=== PATIENT | female | born 1960 | race African-American/Black ===

== ENCOUNTER 2024-01-25 15:42 | Outpatient (AMB) | payer MEDICAID, SELFPAY ==
--- NOTE | 2024-01-25 15:44 | AM.OFFWIN_ITS ---
Intake Vital Signs 01/25/24 15:54 Height 5 ft 9 in Weight 220 lb BMI 32.5 BP 130/82 Blood Pressure Location Rt brachial Position Sitting Pulse 86 Pulse Source Pulse Oximeter Pulse Oximetry (%) 99 Oxygen Delivery Method Room Air Intake Visit Reasons: STUDENT OUTREACH COORDINATOR Medication Refill Ok per Dr. Pena Patient Tobacco Use Status: Former Tobacco user Allergies No Known Allergies Allergy (Verified 01/25/24 15:57) HPI STUDENT OUTREACH COORDINATOR Medication Refill Ok per Dr. Pena HPI Details 63 yr old female presented to the office for a sick visit. Patient has moved from [place] and not established with a new provider yet. Step daughter accompanying her is requesting a refill on the Plavix and donezepil. Pt had a stroke 4 yrs ago with residual paresis on the right side. Speech disorder, expressive aphasia. Urinary Incontinence. Can walk short steps in the house but uses a wheel chair when outside. [facility] Medical History Hx of gallstones Diabetes Stroke (~10/2022) High blood pressure Social History Household Members: Spouse Housing: Apartment Alcohol intake: never Patient Tobacco Use Status: Former Tobacco user Physical Exam Vital Signs: Last Vital Signs Pulse 86 01/25/24 15:54 BP 130/82 01/25/24 15:54 Pulse Ox 99 01/25/24 15:54 Oxygen Delivery Method Room Air 01/25/24 15:54 BMI result Body Mass Index 32.5 Const General: cooperative and healthy appearing Nutritional Appearance: well nourished Orientation/consciousness: patient oriented x3 Limitations: no limitations HEENT Head: Yes normal to inspection Eyes General: appearance normal, both eyes and all related structures Neck Neck: Yes normal visual inspection Chest Chest palpation & inspection: normal palpation of entire chest wall Resp Effort & Inspection: normal respiratory effort Neuro General: patient oriented x3 Extrem Other: Left sided paresis. Assessment & Plan Assessment & Plan (1) Cerebrovascular accident (CVA) determined by clinical assessment: Code(s): I63.9 - Cerebral infarction, unspecified Plan: Patient prescription called in. She has an appt with Dr Hubbard in June. Medications: New clopidogrel 75 mg PO DAILY 90 tabs 1RF donepezil 10 mg PO DAILY 90 tabs 1RF Coding Level of Care Code New Pt Level 3 (33591) Diagnoses Cerebrovascular accident (CVA) determined by clinical assessment I63.9
[2024-01-25 15:54] VITALS: BP 130/82; PULSE 86; O2SAT 99; BMI 32.5
== END 2024-01-25 17:00 | disposition home or self-care (01) ==
PROVIDERS: PCP Family Medicine; Visit Provider Internal Medicine
DX: I69.369 Other paralytic syndrome following cerebral infarction affecting unspecified side (principal)
CPT/HCPCS: 99203

== ENCOUNTER 2024-03-18 10:58 | Outpatient (AMB) | payer MEDICARE, MEDICAID, SELFPAY ==
--- NOTE | 2024-03-18 11:37 | AM.OFFWIN_ITS ---
Intake Vital Signs 03/18/24 11:38 Height 5 ft 9 in BMI Reason not done Patient refused/unable BP 120/90 H Blood Pressure Location Lt brachial Position Sitting Pulse 97 Pulse Source Pulse Oximeter Temp 98.2 F Temp Source Temporal Artery Scan Pulse Oximetry (%) 98 Oxygen Delivery Method Room Air Intake Visit Reasons: ep/ right hip discomfort Intake Note: pt is here today for rt hip discomfort started yesterday Patient Tobacco Use Status: Former Tobacco user Allergies No Known Allergies Allergy (Verified 03/18/24 11:42) Do you need a note to return to daycare/school/sports/work: No HPI HPI Comments History of Present Illness Details 63 y/o female patient who presents to [facility] in clinic with c/o right hip pain since this morning. Patient currently has family in the room with her. She has past medical history of cvaand has some difficulty with speaking and walking. She normally utilizes wheelchair but is able to walk short distances at home. Does report mid left thigh pain x1 day. Denies any falls or trauma to the area. Patient is able to ambulate on the affected limb with increased pain. Has utilize ibuprofen with minimal effect. Will obtain x-ray. No lower extremity edema Patient has full range of motion. Patient has been educated to not utilize ibuprofen at home due to clopidogrel. [facility] Medical History Hx of gallstones Diabetes Stroke (~10/2022) High blood pressure Social History Household Members: Spouse Housing: Apartment Alcohol intake: never Patient Tobacco Use Status: Former Tobacco user Review of Systems Const All systems reviewed & are unremarkable except as noted in HPI and below Denies chills and Denies fever(s) Card Denies chest pain and Denies dyspnea Resp Denies dyspnea Physical Exam Vital Signs: Last Vital Signs Temp 98.2 F 03/18/24 11:38 Pulse 97 03/18/24 11:38 BP 120/90 H 03/18/24 11:38 Pulse Ox 98 03/18/24 11:38 Oxygen Delivery Method Room Air 03/18/24 11:38 Const Other: Appearance: Alert.? Oriented X3.? No acute distress.? Head: Normocephalic, atraumatic, no step-offs or deformities Respiratory: No respiratory distress.? Skin: Skin warm and dry.? Normal skin color.? Normal skin turgor.? Extremities: No lower extremity edema. +tenderness to left thigh, mid, lateral. Neuro: Oriented X 3.? Assessment & Plan Assessment & Plan (1) Left thigh pain: Comment: Obtained x-ray. Will also obtain ultrasound. Patient has been instructed she can utilize Tylenol. Will follow-up with x-ray and ultrasound results. Code(s): M79.652 - Pain in left thigh Plan: Take your medications as prescribed. If you were prescribed antibiotics today, it is important that you take your medication to their entirety, do not skip any doses, do not finish them early. Follow-up with your primary care provider this week. Return to the emergency department with new or worsening symptoms. Such as fevers, chills, chest pain, shortness of breath, nausea, vomiting, dizziness, headache, vision changes, lethargy In case of emergency call 911 Plan follow up with pcp. Orders: Orders US venous duplex LE LT Today M79.652 - Pain in left thigh XR femur LT 2V Today M79.652 - Pain in left thigh Coding Level of Care Code Est Pt Level 4 (60336) Diagnoses Left thigh pain M79.652 Time Spent (min) 40
[2024-03-18 11:38] VITALS: BP 120/90; PULSE 97; TEMP 36.8; O2SAT 98
== END 2024-03-18 15:29 | disposition home or self-care (01) ==
PROVIDERS: PCP Family Medicine; Visit Provider Nurse Practitioner Primary Care
DX: M79.652 Pain in left thigh (principal)
CPT/HCPCS: 99214

== ENCOUNTER 2024-03-18 11:58 | Outpatient (REF) | payer BC, MEDICAID, SELFPAY ==
--- NOTE | ~2024-03-18 | US_ITS ---
EXAMINATION: US VENOUS ULTRASOUND WITH DOPPLER LOWER EXTREMITY, LEFT CLINICAL INFORMATION: Left thigh pain COMPARISON: None available. TECHNIQUE: Ultrasound of the deep veins is performed from the hip to the calf with compression sonography and color and pulse Doppler assessment. Spectral analysis with color-flow imaging is performed. FINDINGS: There is normal venous compression and respiratory variation and augmented flow. The visualized common femoral vein, superficial femoral vein, profunda femoral vein, popliteal vein, and the trifurcation region shows no evidence of deep venous thrombosis. There is no significant popliteal fossa cyst. If the patient's symptoms persist, followup ultrasound in 5 days 7 days might be of value to exclude proximal propagation from a non-visualized calf vein. US/US venous duplex LE LT IMPRESSION: No DVT demonstrated in the left lower extremity.
--- NOTE | ~2024-03-18 | XR_ITS ---
EXAMINATION: XR FEMUR, LEFT CLINICAL INFORMATION: Pain in left thigh COMPARISON: None available. TECHNIQUE: AP and lateral views of the left femur were obtained. FINDINGS: The bones and soft tissues are normal. No fracture. No osseous lesions. XR/XR femur LT 2V IMPRESSION: Normal left femur.
== END 2024-03-18 11:59 | disposition home or self-care (01) ==
LOC: HO.HMGCX 11:58
PROVIDERS: PCP Family Medicine; Visit Provider Nurse Practitioner Primary Care
DX: M79.652 Pain in left thigh (principal)
CPT/HCPCS: 73552; 93971

== ENCOUNTER 2024-03-18 13:05 | Outpatient (REF) | payer MEDICARE, MEDICAID, SELFPAY | END 2024-03-18 13:06 | disposition home or self-care (01) | LOC: HO.HMGCX 13:05 | PROVIDERS: PCP Family Medicine; Visit Provider Nurse Practitioner Primary Care | DX: Z13.89 Encounter for screening for other disorder (principal) ==

== ENCOUNTER 2024-09-14 08:59 | Outpatient (AMB) | payer MEDICARE, MEDICAID, SELFPAY ==
--- NOTE | 2024-09-14 09:17 | A.OFFPC_ITS ---
Vital Signs 09/14/24 09:23 09/14/24 09:33 09/14/24 09:58 Height 5 ft 10 in Weight 225 lb BMI 32.3 BP 187/93 H 213/113 H 164/100 H Blood Pressure Location Rt brachial Rt brachial Rt brachial Position Sitting Sitting Sitting Pulse 82 Pulse Source Pulse Oximeter Temp 97.3 F Temp Source Temporal Artery Scan Pulse Oximetry (%) 100 Oxygen Delivery Method Room Air Intake Visit Reasons: machine welt butter appointment/medications Intake Note: New patient visit Granite Countertop Installer Required: Yes Granite Countertop Installer Name: Daughter Accompanied by: Spouse Allergies No Known Allergies Allergy (Verified 09/14/24 09:48) Medication List - Last Reconciled 09/14/24 by Hanh Rust PIANO MAKER- cholecalciferol (vitamin D3) 25 mcg PO DAILY clopidogrel 75 mg PO DAILY donepezil 10 mg PO DAILY doxazosin 2 mg PO BEDTIME 90 days glipizide 5 mg PO DAILY hydralazine 50 mg PO TID metformin 500 mg PO DAILY metoprolol succinate ER 100 mg PO DAILY 90 days Tobacco use date assessed: 09/14/24 Dental Screening Dental Screen Date: 09/14/24 Did you have a dental visit in the last 12 months?: No Did you have a dental problem in the last 6 months where you did not have access to dental care?: No Was dental information given to patient?: Yes HPI HPI Comments History of Present Illness Details 63 y/o Croatian speaking F with 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 Colon ? Mammo ? DEXA ? PAP ? Tdap 09/14/24 Flu 09/14/24 Specialists: Cards Neuro Optho Here today to est care. Complex patient. Limited medical records. Dtr and here. Pt did not speak. Needs DME: BP cuff Glucometer Barrier cream - urinary incont Needs soft/puree diet, all meds crushed. Has not been taking them as she spits them out or has a hard time. BP elevated today - spit Metoprolol ER out this AM. Wonders about MOW and services in the home. Not active w/ Cards, Neuro, Optho needs referrals A1c 9.2% Needs referral for eye exam - overdue DM [facility] HCP is - I need a copy of this. Not on statin Exam: Awake, alert, chronically ill appearing, sitting in w/c accompanied by and dtr RRR LS dim throughout w/ poor inspiratory effort Left upper and lower ext paresis, contracture of L arm BLE with decreased PP, scars from previous ulcerations noted on Bilat anterior shins, skin is dry, nails are thickened and overgrown, monofilamint and vibratory sensation normal, +1 edema RLE, trace to LLE Did not talk during exam, even when spoken to by family, she did nod her head. Plan Labs today - see below. Tdap and Flu today Referral to Optho, Cards and Neuro and renal Patient needs to take all of her medications crushed. Discontinue metoprolol succinate ER 100 mg, start metoprolol succinate ER sprinkles 100 mg, discontinue donepezil 10 mg, start donepezil 10 mg oral disintegrating tablet. Other medications can be crushed. Start Farxiga 10 mg p.o. q.day to help diabetes as well as renal function. Start atorvastatin 20 mg p.o. daily Refill all meds - done. BP elevated, dtr is a Banking Representative, able to monitor BP at home. Edu provided. DME RXs sent to [facility] request Handicap zainabard completed and returned to dtr @ visit Advised to call for additional services to include MOW: [facility] Address: [address] [place] [address] [address], [place] [address] This note is constructed using voice recognition software. While every effort has been made to ensure accuracy in forensic accountant, still errors may have been included Sometimes, these errors may affect the content or meaning of the given sentence . Total time spent caring for the patient today was 75 minutes. This includes time spent before the visit reviewing the chart, time spent during the visit, and time spent after the visit on documentation [facility] Medical History (Updated 09/14/24 @ 17:10 by Hanh Rust, PIANO MAKER-) Left thigh pain Hx of gallstones Diabetes Stroke (~10/2022) High blood pressure Family History Mother HTN (hypertension) Brother Diabetes Social History (Updated 09/14/24 @ 10:33 by Mariya Morfin CMA) Household Members: Spouse Housing: Apartment Alcohol intake: former Patient Tobacco Use Status: Former Tobacco user Cigarette Packs Per Day: 10 Years Smoked: 30 e-Cigarette/Vaping Use: Never Used Second Hand Smoke Exposure: No service: No Current occupational status: unemployed Cognitive needs: No Hearing needs: No Vision needs: No Questionnaire PHQ-9 Over the last 2 weeks, how often have you been bothered by any of the following problems? 1. Little interest or pleasure in doing things: not at all 2. Feeling down, depressed, or hopeless: not at all 3. Trouble falling or staying asleep, or sleeping too much: not at all 4. Feeling tired or having little energy: not at all 5. Poor appetite or overeating: several days 6. Feeling bad about yourself - or that you are a failure or have let yourself or your family down: not at all 7. Trouble concentrating on things, such as reading the newspaper or watching television: not at all 8. Moving or speaking so slowly that other people could have noticed. Or the opposite - being so fidgety or restless that you have been moving around a lot more than usual: several days 9. Thoughts that you would be better off or of hurting yourself in some way: not at all Total score: 2 Depression Screening Interpretation: Negative Depression Screening Done: Yes 33501 - PHQ-9 Billing: Yes Source: Developed by Drs. Prakash Daniels, Belen Mancia, Derrick Machuca and colleagues, with an educational butch from [employer]. Thrive Questionnaire Date Thrive assessed: 09/14/24 I am a: Patient What is your living situation today?: I have a place to live, but I am worried about losing it in the future Within the past 12 months, did the food you bought not last and you didn't have the money to get more?: Never true Within the past 12 months, did you worry whether your food would run out before you got money to buy more?: Sometimes True Do you have trouble paying for medicines?: No Do you have trouble getting transportation to medical appointments?: No Do you have trouble paying your heating and electricity bill?: No Do you have trouble taking care of your child, family member or friend?: I choose not to answer this question Do you have trouble with day-to-day activities such as bathing, preparing meals, shopping, managing finances, etc.?: Yes Are you currently unemployed and looking for a job?: Yes Are you interested in more education?: Yes Please select the resources that you would like help with: Housing/Jail, Food and Utilities Currently or been in a relationship where the following occur: No concerns reported THRIVE Score: 2 AUDIT C Alcohol Use Questionnaire (AUDIT-C) 1. How often do you have a drink containing alcohol?: Never 3. How often do you have six or more drinks on one occasion?: Never Total Score: 0 Score Reviewed/Action Taken: Yes BUZZ-7 AMB Questionnaire BUZZ-7 Date BUZZ - 7 assessed: 09/14/24 Feeling nervous, anxious, or on edge: 0 = Not at all Not being able to stop or control worryin = Not at all Worrying too much about different things: 0 = Not at all Trouble relaxin = Not at all Being so restless that it is hard to sit still: 1 = Several days Becoming easily annoyed or irritable: 0 = Not at all Feeling afraid as if something awful might happen: 0 = Not at all Total BUZZ-7 score (0-4 normal; 5-9 mild; 10-14 moderate; 15-21 severe): 1 Source: Developed by Drs. Prakash Daniels, Belen Mancia, Derrick Machuca and colleagues, with an educational butch from [employer]. BUZZ-7 Assessment Billing BUZZ-7 Assessment Tool: BUZZ-7 Assessment 64206 Physical exam (Primary Care) Vital Signs: Last Vital Signs Temp 97.3 F 09/14/24 09:23 Pulse 82 09/14/24 09:23 BP 164/100 H 09/14/24 09:58 Pulse Ox 100 09/14/24 09:23 Oxygen Delivery Method Room Air 09/14/24 09:23 BMI result Body Mass Index 32.3 Tobacco/Smoking Status: Tobacco use Status Tobacco use date assessed 09/14/24 09/14/24 09:20 Patient Tobacco Use Status Former Tobacco user 09/14/24 09:23 e-Cigarette/Vaping Use Never Used 09/14/24 09:23 PHQ-9: PHQ-9 Score PHQ-9: Total score 2 09/14/24 10:32 Depression Screening Interpretation: Negative Thrive Assessment: Date of Thrive Assessment Date Thrive assessed 09/14/24 09/14/24 10:34 Currently or been in a relationship where the following occur: No concerns reported Office Procedures Flu Questionnaire Does the patient have a severe egg allergy?: No Does the patient have severe life threatening allergies?: No Does the patient have a fever or illness today?: No Has the patient ever had Guillain-Walker Syndrome?: No Has the patient ever had any past reaction to a flu shot?: No Results AMB Hemoglobin A1c AMB Hemoglobin A1c 9.2 % Last Edit by Mariya Morfin CMA on 09/14/24 10:29 Immunizations Fluarix Triv [id number] (PF) 45 mcg (15 mcg x 3)/0.5 mL IM syringe Performing Provider: MATTHEW Stokes Performing Location: [facility] Administered by: Mariya Morfin CMA on 09/14/24 10:29 Dose Route Admin Location Dispensed Lot Number Expiration Date [facility] Buyer Renter 0.5 mL IM Right Deltoid 0.5 mL [id number] 05/01/25 [id number] [employer] VIS Given Date VIS Provided VIS Publication Date 09/14/24 Single Vaccine 21 Eligibility Eligibility Date Funding Source Not VFC Eligible 09/14/24 Private Boostrix Tdap 2.5 Lf unit-8 mcg-5 Lf/0.5 mL intramuscular syringe Performing Provider: MATTHEW Stokes Performing Location: [facility] Administered by: Mariya Morfin CMA on 09/14/24 10:31 Dose Route Admin Location Dispensed Lot Number Expiration Date [facility] Buyer Renter 0.5 mL IM Left Deltoid 0.5 mL [id number] 05/01/25 [id number] [employer] VIS Given Date VIS Provided VIS Publication Date 09/14/24 Single Vaccine 21 Eligibility Eligibility Date Funding Source Not VFC Eligible 09/14/24 Private Results Reviewed Results Reviewed: Laboratory Last Values Hgb A1c (Clinic) 9.2 % (4.0-6.0) H 09/14/24 09:21 RUN: 09/14/24 1647 PAGE 1 [facility] [address] [place] [phone] Leisure Travel Agent: Farhat Camarillo M.D. Specimen Inquiry Name: Jayla Ramos Age/Sex: 63/F : 1960 Unit#: [id number] Attend Dr: Hanh Rust Re09/14/24 Status: REG REF Location: [facility] Disch: SPEC : [id number] MARTHA: 09/14/24 STATUS: COMP REQ : [id number] RECD: 09/14/24-[address]: Hanh Rust COMP: 09/14/24 ENTERED: 09/14/24-[address]: ORDERED: CMP, Lipid Panel, Vitamin D 25-OH, TSH Rflx Test Result Flag Reference Sodium 146 H 135-145 mmol/L Potassium 4.1 3.3-5.1 mmol/L CL 107 96-108 mmol/L CO2 31 H 22-29 mmol/L Gap 12 12-20 BUN 22 H 9-16 mg/dL Creat 1.43 H 0.5-1.4 mg/dL eGFR 37 Chronic Kidney Disease: Estimated GFR < 60 mL/min/1.73m2 Severe Kidney Disease: Estimated GFR < 15 mL/min/1.73m2 Glucose, Random 280 H 60-115 mg/dL CA 10.1 8.4-10.2 mg/dL Total Bili 0.2 0.0-1.0 mg/dL AST (GOT) 17 5-31 U/L ALT (GPT) 8 0-31 U/L Protein, Total 7.7 6.5-8.0 g/dL Alb 3.9 3.5-5.0 g/dL Triglyceride 195 H <150 mg/dL Desirable Triglyceride: less than 150 mg/dL Borderline High Triglyceride 150-199 mg/dL High Triglyceride: 200-499 mg/dL Very High Triglyceride: greater than or equal to 5OO mg/dL Cholesterol 224 H <200 mg/dL Desirable Cholesterol: less than 200 mg/dL Borderline High Cholesterol: 200-239 mg/dL High Cholesterol: greater than 239 mg/dL LDL Calculated 142 H <100 mg/dL Desirable LDL: less than 100 mg/dL Near Optimal/Above Optimal LDL: 110-129 mg/dL Borderline High LDL: 130-159 mg/dL High LDL: 160-189 mg/dL Very High LDL: greater than or equal to 190 mg/dL HDL 43 >40 mg/dL Desirable HDL: greater than 40 mg/dL Note: This HDL assay may give artificially low results in patients with liver disease. Alk Phos 138 H 39-117 U/L Vit D 25-OH Tot 44.6 >30 ng/mL Health Based Reference Values* < 20 ng/mL Deficient 20-30 ng/mL Insufficient > 30 ng/mL Sufficient *Danny DIALLO. N Engl J Med. 2007;357:266-280 Care must be taken in interpreting Vitamin D results from different laboratories and methodologies. Published data demonstrated that results from patients undergoing hemodialysis may show a negative bias when tested with various automated 25-OH vitamin D assays when compared to LC-MS/MS. When testing samples from patients whose predominant form of Vitamin D is Vitamin D2, such as patients receiving Vitamin D2 supplementation, results that are subtherapeutic should be confirmed with another method such as LC-MS/MS. TSH 0.57 0.32-4.0 uIU/mL END OF REPORT RUN: 09/14/24 9106 PAGE 1 [facility] [address] [place] [phone] Leisure Travel Agent: Farhat Camarillo M.D. Specimen Inquiry Name: Jayla Ramos Age/Sex: 63/F : 1960 Unit#: [id number] Attend Dr: Hanh RustPAlvaBC Re09/14/24 Status: REG REF Location: [facility] Disch: SPEC : [id number] MARTHA: 09/14/24 STATUS: COMP REQ : [id number] RECD: 09/14/[address]: Hanh Rust COMP: 09/14/24 ENTERED: 09/14/[address]: ORDERED: CBC No Diff Test Result Flag Reference WBC 7.8 4.8-10.8 X10*3/uL RBC 4.62 4.20-5.50 X10*6/uL HGB 11.4 L 12.0-16.0 g/dl HCT 39.6 37.0-47.0 % MCV 85.7 80.0-98.0 fL MCH 24.7 L 27.0-33.0 pg MCHC 28.8 L 31.0-35.0 g/dl RDW 18.5 H 11.0-16.0 % PLT 408 H 160-400 X10*3/uL MPV 10.2 9.4-12.3 fL NRBC Pct Auto 0.0 0.0-0.2 /100WBC NRBC Abs Auto 0.000 0.0-0.012 X10*3/uL END OF REPORT Coding Level of Care Code Est Pt Level 5 (11694) Complex EM visit Add On G2211 Diagnoses Diabetes mellitus type 2 with complications E11.8 CVA, old, hemiparesis I69.359 Vitamin D deficiency E55.9 Urinary incontinence without sensory awareness N39.42 Urinary Incontinence type: urinary incontinence without sensory awareness Combined receptive and expressive 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) I69.320 Mild vascular dementia without behavioral disturbance, psychotic disturbance, mood disturbance, or anxiety F01.A0 Dementia type: vascular dementia Dementia severity: mild Dementia behavioral or psychological symptom: without behavioral, psychotic, or mood disturbance or anxiety Hypertension due to endocrine disorder I15.2 Hypertension type: secondary to endocrine disorders PVD (peripheral vascular disease) I73.9 Type 2 diabetes mellitus with stage 3b chronic kidney disease, without long-term current use of insulin E11.22; N18.32 Diabetes mellitus type: type 2 Anemia, unspecified type D64.9 Anemia type: unspecified type Mixed hyperlipidemia E78.2 Hyperlipidemia type: mixed hyperlipidemia CPT Codes PROLONG OUTPT/OFFICE VIS - G2212 Additional Codes BUZZ-7 Assessment Billing - BUZZ-7 Assessment Tool: BUZZ-7 Assessment 68404 ([id number]) PHQ-9 - 45213 - PHQ-9 Billing: Yes ([id number]) Assessment & Plan Assessment & Plan (1) Diabetes mellitus type 2 with complications: Comment: PVD, HLD Code(s): E11.8 - Type 2 diabetes mellitus with unspecified complications Category: Medical Plan: . (2) CVA, old, hemiparesis: Comment: Left hemiparesis Code(s): I69.359 - Hemiplegia and hemiparesis following cerebral infarction affecting unspecified side Category: Medical Plan: . (3) Vitamin D deficiency: Code(s): E55.9 - Vitamin D deficiency, unspecified Category: Medical Plan: . (4) Urinary incontinence: Code(s): R32 - Unspecified urinary incontinence Category: Medical Qualifiers: Urinary Incontinence type: urinary incontinence without sensory awareness Qualified Code(s): N39.42 - Incontinence without sensory awareness Plan: . 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 (6) Dementia: Code(s): F03.90 - Unspecified dementia, unspecified severity, without behavioral disturbance, psychotic disturbance, mood disturbance, and anxiety Category: Medical Qualifiers: Dementia type: vascular dementia Dementia severity: mild Dementia behavioral or psychological symptom: without behavioral, psychotic, or mood disturbance or anxiety Qualified Code(s): F01.A0 - Vascular dementia, mild, without behavioral disturbance, psychotic disturbance, mood disturbance, and anxiety Plan: . (7) High blood pressure: Code(s): I10 - Essential (primary) hypertension Category: Medical Qualifiers: Hypertension type: secondary to endocrine disorders Qualified Code(s): I15.2 - Hypertension secondary to endocrine disorders Plan: . (8) PVD (peripheral vascular disease): Comment: start statin, cont plavix, monitor skin integrity Code(s): I73.9 - Peripheral vascular disease, unspecified Category: Medical Plan: . (9) Diabetes mellitus with stage 3b chronic kidney disease, without long-term current use of insulin: Code(s): E11.22 - Type 2 diabetes mellitus with diabetic chronic kidney disease; N18.32 - Chronic kidney disease, stage 3b Category: Medical Qualifiers: Diabetes mellitus type: type 2 Qualified Code(s): E11.22 - Type 2 diabetes mellitus with diabetic chronic kidney disease; N18.32 - Chronic kidney disease, stage 3b Plan: . (10) Anemia: Comment: mild, will wait for renal input Code(s): D64.9 - Anemia, unspecified Category: Medical Qualifiers: Anemia type: unspecified type Qualified Code(s): D64.9 - Anemia, unspecified Plan: . (11) Hyperlipidemia: Code(s): E78.5 - Hyperlipidemia, unspecified Category: Medical Qualifiers: Hyperlipidemia type: mixed hyperlipidemia Qualified Code(s): E78.2 - Mixed hyperlipidemia Plan: . Plan . Orders: Orders AMB Hemoglobin A1c Today Z13.9 - Encounter for screening, unspecified Complete Blood Count no Diff Today E11.8 - Type 2 diabetes mellitus with unspecified complications, E55.9 - Vitamin D deficiency, unspecified, I10 - Essential (primary) hypertension Comprehensive Met. Panel Today E11.8 - Type 2 diabetes mellitus with unspecified complications, E55.9 - Vitamin D deficiency, unspecified, I10 - Essential (primary) hypertension TSH reflex Free T4 Today E11.8 - Type 2 diabetes mellitus with unspecified complications, E55.9 - Vitamin D deficiency, unspecified, I10 - Essential (primary) hypertension Vitamin D 25-OH Total Today E11.8 - Type 2 diabetes mellitus with unspecified complications, E55.9 - Vitamin D deficiency, unspecified, I10 - Essential (primary) hypertension Vitamin B12 and Folate Today E11.8 - Type 2 diabetes mellitus with unspecified complications, E55.9 - Vitamin D deficiency, unspecified, I10 - Essential (primary) hypertension Influenza [id number] Immunization Today Z23 - Encounter for immunization TDaP Immunization Today Z23 - Encounter for immunization Lipid Panel Today E11.8 - Type 2 diabetes mellitus with unspecified complications, E55.9 - Vitamin D deficiency, unspecified, I10 - Essential (primary) hypertension Microalbumin, Random (w Creat) Today E11.8 - Type 2 diabetes mellitus with unspecified complications, E55.9 - Vitamin D deficiency, unspecified, I10 - Essential (primary) hypertension Referrals Cardiology Referral I10 - Essential (primary) hypertension, I69.359 - Hemiplegia and hemiparesis following cerebral infarction affecting unspecified side Neurology Referral F03.90 - Unspecified dementia, unspecified severity, without behavioral disturbance, psychotic disturbance, mood disturbance, and anxiety, I69.320 - Aphasia following cerebral infarction, I69.359 - Hemiplegia and hemiparesis following cerebral infarction affecting unspecified side Ophthalmology Referral E11.8 - Type 2 diabetes mellitus with unspecified complications, I69.359 - Hemiplegia and hemiparesis following cerebral infarction affecting unspecified side Podiatry Referral E11.8 - Type 2 diabetes mellitus with unspecified complicat ions, I73.9 - Peripheral vascular disease, unspecified Nephrology Referral D64.9 - Anemia, unspecified, E11.22 - Type 2 diabetes mellitus with diabetic chronic kidney disease, I10 - Essential (primary) hypertension, N18.32 - Chronic kidney disease, stage 3b Medications: New blood-glucose meter (FreeStyle Lite Meter kit) As directed 1 ea 0RF E11.8 - Type 2 diabetes mellitus with unspecified complications blood sugar diagnostic (FreeStyle Lite Strips) As directed 100 ea 11RF E11.8 - Type 2 diabetes mellitus with unspecified complications lancets (FreeStyle Lancets) As directed 100 ea 11RF E11.8 - Type 2 diabetes m ellitus with unspecified complications zinc oxide 25% 1 appl topical BID-QID PRN 500 grams 12RF skin irritation R32 - Unspecified urinary incontinence dapagliflozin propanediol (Farxiga) 10 mg PO DAILY 90 tabs 1RF glipizide 5 mg PO DAILY 90 tabs 1RF metformin 500 mg PO DAILY 90 tabs 1RF miscellaneous medical supply (Blood Pressure Cuff) As directed 1 ea 0RF I10 - Essential (primary) hypertension metoprolol succinate ER 100 mg PO DAILY 90 ea 2RF donepezil 10 mg PO BEDTIME 90 tabs 2RF atorvastatin 20 mg PO BEDTIME 90 tabs 1RF Changed From hydralazine 50 mg PO TID To hydralazine 50 mg PO TID 90 days 270 tabs 1RF Refilled doxazosin 2 mg PO BEDTIME 90 days 90 tabs 2RF clopidogrel 75 mg PO DAILY 90 tabs 1RF Discontinued metoprolol succinate ER Discontinued Reason: Doctor's Order 100 mg PO DAILY 90 days 90 tabs 3RF Patient Instructions: [facility] Address: [address] [place] [address] [address], [place] [address]
[2024-09-14 09:23] VITALS: BP 187/93; PULSE 82; TEMP 36.3; O2SAT 100; BMI 32.3
[2024-09-14 09:33] VITALS: BP 213/113
[2024-09-14 09:58] VITALS: BP 164/100
== END 2024-09-14 10:09 | disposition home or self-care (01) ==
PROVIDERS: PCP Nurse Practitioner Family; Visit Provider Nurse Practitioner Family
DX: E11.8 Type 2 diabetes mellitus with unspecified complications (principal); I69.359 Hemiplegia and hemiparesis following cerebral infarction affecting unspecified side; F01.A0 Vascular dementia, mild, without behavioral disturbance, psychotic disturbance, mood disturbance, and anxiety; E11.22 Type 2 diabetes mellitus with diabetic chronic kidney disease; N18.32 Chronic kidney disease, stage 3b; I73.9 Peripheral vascular disease, unspecified; E55.9 Vitamin D deficiency, unspecified; N39.42 Incontinence without sensory awareness; I69.320 Aphasia following cerebral infarction; D64.9 Anemia, unspecified; E78.2 Mixed hyperlipidemia; Z23 Encounter for immunization

== ENCOUNTER 2024-09-14 10:29 | Outpatient (REF) | payer MEDICARE, MEDICAID, SELFPAY ==
[2024-09-14 14:29] LABS: Hematocrit 39.6 % (37.0-47.0); Hemoglobin 11.4 g/dl (12.0-16.0); Mean Corpuscular HGB Conc 28.8 g/dl (31.0-35.0); Mean Corpuscular Hemoglobin 24.7 pg (27.0-33.0); Mean Corpuscular Volume 85.7 fL (80.0-98.0); Mean Platelet Volume 10.2 fL (9.4-12.3); Platelet Count 408 X10*3/uL (160-400); Red Blood Count 4.62 X10*6/uL (4.20-5.50); Red Cell Distribution Width 18.5 % (11.0-16.0); White Blood Count 7.8 X10*3/uL (4.8-10.8)
[2024-09-14 15:07] LABS: Alanine Aminotransferase 8 U/L (0-31); Albumin Level 3.9 g/dL (3.5-5.0); Alkaline Phosphatase 138 U/L (39-117); Anion Gap 12 (12-20); Aspartate Amino Transferase 17 U/L (5-31); Bilirubin Total 0.2 mg/dL (0.0-1.0); Blood Urea Nitrogen 22 mg/dL (9-16); Calcium 10.1 mg/dL (8.4-10.2); Carbon Dioxide 31 mmol/L (22-29); Chloride 107 mmol/L (96-108); Cholesterol 224 mg/dL (<200); Estimated Glomerular Filt Rate 37; Glucose Random 280 mg/dL (60-115); HDL Cholesterol 43 mg/dL (>40); LDL Cholesterol Calculated 142 mg/dL (<100); Potassium 4.1 mmol/L (3.3-5.1); Sodium 146 mmol/L (135-145); TSH reflex Free T4 0.57 uIU/mL (0.32-4.0); Total Protein 7.7 g/dL (6.5-8.0); Triglycerides 195 mg/dL (<150); Vitamin D 25-OH Total 44.6 ng/mL (>30)
[2024-09-14 15:18] LABS: Folate 7.6 ng/mL (> or = 4.0); Vitamin B12 336 pg/mL (200-900)
== END 2024-09-14 10:30 | disposition home or self-care (01) ==
LOC: HO.WFDLDS 10:29
PROVIDERS: Visit Provider Nurse Practitioner Family
DX: E11.8 Type 2 diabetes mellitus with unspecified complications (principal); I69.354 Hemiplegia and hemiparesis following cerebral infarction affecting left non-dominant side; E55.9 Vitamin D deficiency, unspecified; N39.42 Incontinence without sensory awareness; I69.320 Aphasia following cerebral infarction; F01.A0 Vascular dementia, mild, without behavioral disturbance, psychotic disturbance, mood disturbance, and anxiety; I15.2 Hypertension secondary to endocrine disorders; I73.9 Peripheral vascular disease, unspecified; E11.22 Type 2 diabetes mellitus with diabetic chronic kidney disease; N18.32 Chronic kidney disease, stage 3b; D63.1 Anemia in chronic kidney disease; E78.2 Mixed hyperlipidemia; Z23 Encounter for immunization
CPT/HCPCS: 36415; 80053; 80061; 82306; 82607; 82746; 83036; 84443; 85027; 90471; 90656; 90715; 96127; 99212

== ENCOUNTER 2024-10-03 12:29 | Emergency (ER) | payer MEDICARE, MEDICAID, SELFPAY ==
--- NOTE | ~2024-10-03 | CT_ITS ---
EXAMINATION: CT HEAD WITHOUT CONTRAST CLINICAL INFORMATION: History CVA, chronic left-sided weakness COMPARISON: None available. TECHNIQUE: Contiguous axial imaging was performed from the skull base to vertex without intravenous administration of contrast. This CT examination was performed using dose optimization techniques as appropriate, variously including the following: *Automated exposure control *Adjustment of mA and/or kV according to patient size (this includes techniques or standardized protocols for targeted exams where dose is matched to indication/reason for exam; i.e. extremities or head) *Use of iterative reconstruction technique DLP: 756 mGy-cm RESULTS: There is no evidence of acute intracranial hemorrhage, acute large vessel infarct, midline shift or mass effect. The turner-white differentiation is preserved. There are patchy periventricular and subcortical white matter changes, which are nonspecific, but likely represent chronic microangiopathic change in a patient of this age. There is encephalomalacia in the right parietal lobe. The ventricles and sulci are moderately prominent consistent with age related volume loss. There are no extraaxial collections. Osseous structures are intact. Paranasal sinuses and mastoid air cells are well aerated. CT/CT head/brain wo IV con IMPRESSION: 1. No acute intracranial pathology. 2. Encephalomalacia in the right parietal lobe. Electronically signed by: Beth Watson MD 10/03/2024 04:49 PM [facility]
--- NOTE | ~2024-10-03 | XR_ITS ---
EXAMINATION: XR CHEST CLINICAL INFORMATION: weakness COMPARISON: None available. TECHNIQUE: Frontal view of the chest was obtained. The patient is rotated. FINDINGS: No significant abnormality is noted involving the heart, lungs, mediastinum, bony thorax or soft tissues. XR/XR chest 1V IMPRESSION: No acute disease. Electronically signed by: Beth Watson MD 10/03/2024 02:13 PM [facility]
--- NOTE | 2024-10-03 12:39 | ED_ITS ---
HPI - General Adult General Chief complaint: Weakness Stated complaint: WEAK,DECREASED PO INTAKE,HIGH BP 190/100 PER EMS Time Seen by Provider: 10/03/24 12:34 History of Present Illness ED Provider: Anne TANG narrative: The patient is a 64-year-old woman who moved [place] from [place] a few months ago. She apparently had a stroke 4 years ago which has left her with left-sided weakness and difficulty with speech. Apparently she has been able to walk short steps at her house but uses a wheelchair when she leaves the house. She has been on clopidogrel, metoprolol, metformin, hydralazine, glipizide, doxazosin and donepezil. I believe the patient recently established a new primary care doctor here through [facility] and was started on Farxiga and atorvastatin as well. The patient currently lives in [place]. She lives with her . According to the patient's the patient is slid out of bed at around 02:00 this morning. The was surprised because normally the patient is able to assist in getting herself up or moving around. This morning she seemed unable to contribute to efforts to get her off the floor. Nevertheless the was able to get her off the floor and back into bed. He watched her for several hours until finally calling an ambulance because she continued to seem weaker than usual and was not at her baseline. She seemed more fatigued. The patient is nonverbal at baseline. She can not to some extent indicate yes or no but she is not able to give any additional history. She denies headache. She denies neck pain. She denies chest pain. She denies abdominal pain. There has been no vomiting. The patient does not have a history of urinary tract infections. Related Data Home Medications ?Medication ?Instructions ?Recorded ?Confirmed cholecalciferol (vitamin D3) 25 25 mcg PO DAILY 01/25/24 09/14/24 mcg (1,000 unit) capsule Previous Rx's ?Medication ?Instructions ?Recorded atorvastatin 20 mg tablet 20 mg PO BEDTIME #90 tabs 09/14/24 blood sugar diagnostic (FreeStyle #100 ea 09/14/24 Lite Strips) blood-glucose meter (FreeStyle #1 ea 09/14/24 Lite Meter kit) clopidogrel 75 mg tablet 75 mg PO DAILY #90 tabs 09/14/24 dapagliflozin propanediol 10 mg 10 mg PO DAILY #90 tabs 09/14/24 tablet (Farxiga) donepezil 10 mg disintegrating 10 mg PO BEDTIME #90 tabs 09/14/24 tablet doxazosin 2 mg tablet 2 mg PO BEDTIME 90 days #90 tabs 09/14/24 glipizide 5 mg tablet 5 mg PO DAILY #90 tabs 09/14/24 hydralazine 50 mg tablet 50 mg PO TID 90 days #270 tabs 09/14/24 lancets 28 gauge (FreeStyle #100 ea 09/14/24 Lancets) metformin 500 mg tablet 500 mg PO DAILY #90 tabs 09/14/24 miscellaneous medical supply #1 ea 09/14/24 (Blood Pressure Cuff) zinc oxide 25 % topical paste 1 appl topical BID-QID PRN skin 09/14/24 irritation #500 grams atenolol 50 mg tablet 50 mg PO DAILY #90 tabs 09/15/24 cefuroxime axetil 250 mg tablet 250 mg PO BID #12 tabs 10/03/24 Allergies Allergy/AdvReac Type Severity Reaction Status Date / Time No Known Allergies Allergy Verified 10/03/24 12:44 Review of Systems 2 Review of Systems: Yes all other systems are reviewed and are negative [facility] Past Medical History Medical History (Updated 10/03/24 @ 19:39 by Antonio Rodríguez MD) Left thigh pain Hx of gallstones Diabetes Stroke (~10/2022) High blood pressure Family History Family History Mother HTN (hypertension) Brother Diabetes Social History Social History (Updated 09/14/24 @ 10:33 by Mariya Morfin CMA) Household Members: Spouse Housing: Apartment Alcohol intake: former Patient Tobacco Use Status: Former Tobacco user Cigarette Packs Per Day: 10 Years Smoked: 30 e-Cigarette/Vaping Use: Never Used Second Hand Smoke Exposure: No Advance Directives: Yes Advance Directives on File: Yes Advance Directives Date on File: 03/18/24 service: No Current occupational status: unemployed Cognitive needs: No Hearing needs: No Vision needs: No Physical Exam ED Vital Signs: Vital Signs - 24 hr 10/03/24 12:41 10/03/24 16:56 Temperature 98.1 F 98.3 F Pulse Rate 77 90 Respiratory Rate 20 15 Blood Pressure 179/82 H 125/87 Pulse Oximetry 99 97 Oxygen Delivery Method Room Air Room Air BMI result Body Mass Index 39.6 Const Other: The patient is a chronically ill-appearing 64-year-old woman who was awake and makes eye contact. She is nonverbal. She does not seem in acute pain. HENMT Other: The patient did not have an obvious facial asymmetry although she did have some drooling. Mucous membranes are moist. Eyes Other: Pupils are round equal, conjunctivae are clear, extraocular movements intact Neck Other: No posterior midline C-spine tenderness. She can move her neck through a good range of motion without discomfort. C-spine is clinically clear. Resp Effort & Inspection: normal respiratory effort Auscultation: clear to auscultation bilaterally Cardio Rate: regular rate Rhythm: regular rhythm Heart sounds: S1 normal heart sound present and S2 normal heart sound present GI Other: Abdomen is soft and seems nontender Skin Other: Skin is dry and unremarkable Neuro Other: The patient is awake. She is nonverbal. She is able to follow simple commands. She can occasionally nod her head or shake her head to indicate yes or no. Eye movements are intact. No obvious facial asymmetry but the patient was drooling. The patient does not seem able to speak. She has reasonably good strength of the right arm and right leg. Very little strength in the left arm and left leg. Extrem Other: No peripheral edema Medications Administered Discontinued Medications Generic Name Dose Route Start Last Admin Trade Name Freq PRN Reason Stop Dose Admin Ceftriaxone Sodium 1 gm 10/03/24 16:57 10/03/24 17:11 Ceftriaxone Sodium 1 Gm Vial IVPUSH 10/03/24 16:58 1 gm ONCE ONE Administration Sodium Chloride 1,000 mls @ 999 mls/hr 10/03/24 17:00 10/03/24 17:12 Ns IV 10/03/24 18:00 999 mls/hr .Q1H1M [facility] Administration Medical Decision Making Medical Decision Making [facility] Narrative: The patient is a 64-year-old female who was quite disabled at baseline. She has had a stroke that has left her with left-sided weakness and an inability to express herself. She lives with her in an apartment in [place]. Today she seemed weaker than usual after having slid out of bed early this morning at 02:00. There is no sign of injury. The patient's workup is unremarkable aside from her urinalysis which is consistent with a UTI. She was given 1 g of IV ceftriaxone. She does not seem septic or systemically ill otherwise. Her white blood count and differential are unremarkable. The patient's thought that she seemed to be more lively after she received a L of IV normal saline. He seems to feel comfortable with the idea of caring for her at home with the antibiotics. She will be prescribed cefuroxime 250 mg b.i.d. x6 days. The patient has previously been prescribed Farxiga by her PCP. This prescription is still at her pharmacy. It has never been initiated. Farxiga can predispose a person to urinary tract infections. Given that she is currently having a urinary tract infection off Farxiga I have advised the to contact the PCP before starting Farxiga to see if they still recommend it. Lab Data 10/03/24 13:11 10/03/24 13:11 Labs: Lab Results 10/03/24 10/03/24 10/03/24 Range/Units 13:06 13:11 15:12 WBC 9.1 (4.8-10.8) X10*3/uL RBC 4.28 (4.20-5.50) X10*6/uL Hgb 10.8 L (12.0-16.0) g/dl Hct 35.5 L (37.0-47.0) % MCV 82.9 (80.0-98.0) fL MCH 25.2 L (27.0-33.0) pg MCHC 30.4 L (31.0-35.0) g/dl RDW 18.5 H (11.0-16.0) % Plt Count 358 (160-400) X10*3/uL MPV 8.9 L (9.4-12.3) fL Immature Gran % (Auto) 0.3 (0.0-0.4) % Neut % (Auto) 67.1 (45-73) % Lymph % (Auto) 23.9 (20-40) % Camp % (Auto) 7.0 (2-11) % Eos % (Auto) 1.3 (0-4) % Baso % (Auto) 0.4 (0-2) % Lymph # (Auto) 2.2 (1.2-4.9) X10*3/uL Camp # (Auto) 0.6 (0.1-1.2) X10*3/uL Eos # (Auto) 0.1 (0.0-0.4) X10*3/uL Baso # (Auto) 0.0 (0.0-0.2) X10*3/uL Abs Immat Gran (auto) 0.03 (0.00-0.03) X10*3/uL Absolute Neuts (auto) 6.1 (2.0-8.3) x10*3/uL Absolute Nucleated RBC 0.000 (0.0-0.012) X10*3/uL Nucleated RBC % (auto) 0.0 (0.0-0.2) /100WBC Sodium 145 (135-145) mmol/L Potassium 4.0 (3.3-5.1) mmol/L Chloride 109 H (96-108) mmol/L Carbon Dioxide 30 H (22-29) mmol/L Anion Gap 10 L (12-20) BUN 15 (9-16) mg/dL Creatinine 1.29 (0.5-1.4) mg/dL Estim Creat Clear Calc 54.5 Estimated GFR 42 Random Glucose 141 H (60-115) mg/dL Lactic Acid (0.5-2.0) mmol/L Calcium 9.5 (8.4-10.2) mg/dL Magnesium 1.9 (1.6-2.6) mg/dL Total Bilirubin 0.3 (0.0-1.0) mg/dL Direct Bilirubin 0.1 (0.0-0.5) mg/dL AST 27 (5-31) U/L ALT 14 (0-31) U/L Alkaline Phosphatase 130 H (39-117) U/L Troponin I High Sens 32.5 H (<3.5-17.0) ng/L C-Reactive Protein 0.65 H (< or = 0.50) mg/dL B-Natriuretic Peptide 30 (<100) pg/mL Total Protein 7.1 (6.5-8.0) g/dL Albumin 3.8 (3.5-5.0) g/dL Urine Color Yellow Urine Appearance Cloudy Urine pH 6.0 (5.0-9.0) Ur Specific Sully 1.015 (1.005-1.025) Urine Protein Negative (Neg-Trace) mg/dL Urine Glucose (UA) Negative (Negative) mg/dL Urine Ketones Negative (Negative) mg/dL Urine Blood Moderate (2+) H (Negative) Urine Nitrite Positive H (Negative) Ur Leukocyte Esterase Large (3+) H (Negative) Urine RBC >20 H (0-2) /HPF Urine WBC >50 H (0-5) /HPF Ur Squamous Epith Cells 3-5 (0-2) /HPF Urine Bacteria 2+ (None Seen) Hyaline Casts 3-5 (0-2) /LPF Urine Opiates Screen Not Detected (Not Detect) Ur Buprenorphine Scrn Not Detected (Not Detect) ng/mL Ur Oxycodone Screen Not Detected (Not Detect) ng/mL Urine Methadone Screen Not Detected (Not Detect) ng/mL Urine Fentanyl Screen Not Detected (Not Detect) Ur Barbiturates Screen Not Detected (Not Detect) Ur Phencyclidine Scrn Not Detected (Not Detect) Ur Amphetamines Screen Not Detected (Not Detect) U Benzodiazepines Scrn Not Detected (Not Detect) Urine Cocaine Screen Not Detected (Not Detect) U Marijuana (THC) Screen Not Detected (Not Detect) Ethyl Alcohol < 10 mg/dL Influenza Type A (PCR) NEGATIVE (Negative) Influenza Type B (PCR) NEGATIVE (Negative) RSV RNA Qual (PCR) NEGATIVE (Negative) SARS-CoV-2 RNA (RT-PCR) NEGATIVE (Negative) 10/03/24 10/03/24 Range/Units 16:25 19:02 WBC (4.8-10.8) X10*3/uL RBC (4.20-5.50) X10*6/uL Hgb (12.0-16.0) g/dl Hct (37.0-47.0) % MCV (80.0-98.0) fL MCH (27.0-33.0) pg MCHC (31.0-35.0) g/dl RDW (11.0-16.0) % Plt Count (160-400) X10*3/uL MPV (9.4-12.3) fL Immature Gran % (Auto) (0.0-0.4) % Neut % (Auto) (45-73) % Lymph % (Auto) (20-40) % Camp % (Auto) (2-11) % Eos % (Auto) (0-4) % Baso % (Auto) (0-2) % Lymph # (Auto) (1.2-4.9) X10*3/uL Camp # (Auto) (0.1-1.2) X10*3/uL Eos # (Auto) (0.0-0.4) X10*3/uL Baso # (Auto) (0.0-0.2) X10*3/uL Abs Immat Gran (auto) (0.00-0.03) X10*3/uL Absolute Neuts (auto) (2.0-8.3) x10*3/uL Absolute Nucleated RBC (0.0-0.012) X10*3/uL Nucleated RBC % (auto) (0.0-0.2) /100WBC Sodium (135-145) mmol/L Potassium (3.3-5.1) mmol/L Chloride (96-108) mmol/L Carbon Dioxide (22-29) mmol/L Anion Gap (12-20) BUN (9-16) mg/dL Creatinine (0.5-1.4) mg/dL Estim Creat Clear Calc Estimated GFR Random Glucose (60-115) mg/dL Lactic Acid 0.9 (0.5-2.0) mmol/L Calcium (8.4-10.2) mg/dL Magnesium (1.6-2.6) mg/dL Total Bilirubin (0.0-1.0) mg/dL Direct Bilirubin (0.0-0.5) mg/dL AST (5-31) U/L ALT (0-31) U/L Alkaline Phosphatase (39-117) U/L Troponin I High Sens 33.1 H (<3.5-17.0) ng/L C-Reactive Protein (< or = 0.50) mg/dL B-Natriuretic Peptide (<100) pg/mL Total Protein (6.5-8.0) g/dL Albumin (3.5-5.0) g/dL Urine Color Urine Appearance Urine pH (5.0-9.0) Ur Specific Sully (1.005-1.025) Urine Protein (Neg-Trace) mg/dL Urine Glucose (UA) (Negative) mg/dL Urine Ketones (Negative) mg/dL Urine Blood (Negative) Urine Nitrite (Negative) Ur Leukocyte Esterase (Negative) Urine RBC (0-2) /HPF Urine WBC (0-5) /HPF Ur Squamous Epith Cells (0-2) /HPF Urine Bacteria (None Seen) Hyaline Casts (0-2) /LPF Urine Opiates Screen (Not Detect) Ur Buprenorphine Scrn (Not Detect) ng/mL Ur Oxycodone Screen (Not Detect) ng/mL Urine Methadone Screen (Not Detect) ng/mL Urine Fentanyl Screen (Not Detect) Ur Barbiturates Screen (Not Detect) Ur Phencyclidine Scrn (Not Detect) Ur Amphetamines Screen (Not Detect) U Benzodiazepines Scrn (Not Detect) Urine Cocaine Screen (Not Detect) U Marijuana (THC) Screen (Not Detect) Ethyl Alcohol mg/dL Influenza Type A (PCR) (Negative) Influenza Type B (PCR) (Negative) RSV RNA Qual (PCR) (Negative) SARS-CoV-2 RNA (RT-PCR) (Negative) Discharge Plan Discharge Clinical Impression: Urinary tract infection Patient Disposition: Home, Self-Care Additional Instructions: She seems to have a urinary tract infection today. She received a dose of IV antibiotics here in the emergency room today and a prescription for additional antibiotics will be sent to her pharmacy for her to start tomorrow. Please continue her regular medications. There is a medication at the pharmacy which you have not yet picked up. This medication is called dapaglifozin. I would not start this medication until she has finished the course of antibiotics. Additionally, I would inform her regular doctor that she had a urinary tract infection and try to speak to the primary care doctor before starting this medication as well. Please continue all of her other regular medications. Please follow up with your regular doctor. Return to the emergency room if worse. Prescriptions: New cefuroxime axetil 250 mg tablet 250 mg PO BID Qty: 12 0RF No Action atenolol 50 mg tablet 50 mg PO DAILY Qty: 90 0RF cholecalciferol (vitamin D3) 25 mcg (1,000 unit) capsule 25 mcg PO DAILY clopidogrel 75 mg tablet 75 mg PO DAILY Qty: 90 1RF (DME) Blood Pressure Cuff Misc See Rx Instructions .Route Qty: 1 0RF Rx Instructions: As directed (DME) FreeStyle Lite Strips Strip See Rx Instructions .MEDSUPPLY Qty: 100 11RF Rx Instructions: As directed (DME) blood-glucose meter [FreeStyle Lite Meter] Kit See Rx Instructions .MEDSUPPLY Qty: 1 0RF Rx Instructions: As directed (DME) lancets [FreeStyle Lancets] 28 gauge misc See Rx Instructions .MEDSUPPLY Qty: 100 11RF Rx Instructions: As directed zinc oxide 25 % paste 1 appl topical BID-QID PRN (Reason: skin irritation) Qty: 500 12RF donepezil 10 mg tablet,disintegrating 10 mg PO BEDTIME Qty: 90 2RF dapagliflozin propanediol [Farxiga] 10 mg tablet 10 mg PO DAILY Qty: 90 1RF doxazosin 2 mg tablet 2 mg PO BEDTIME 90 Days Qty: 90 2RF glipizide 5 mg tablet 5 mg PO DAILY Qty: 90 1RF hydralazine 50 mg tablet 50 mg PO TID 90 Days Qty: 270 1RF metformin 500 mg tablet 500 mg PO DAILY Qty: 90 1RF atorvastatin 20 mg tablet 20 mg PO BEDTIME Qty: 90 1RF Referrals: Hanh Rust, RECORDS MANAGEMENT DIRECTOR-BC [Primary Care Provider] - Print Language: Azerbaijani
[2024-10-03 12:41] VITALS: BP 175/92; BP 179/82; PULSE 75; PULSE 77; RESP 20; TEMP 36.7; O2SAT 98; O2SAT 99; BMI 39.6
--- NOTE | 2024-10-03 12:55 | ECG_ITS ---
Test Reason : WEAKNESS Blood Pressure : / mmHG Vent. Rate : 081 BPM Atrial Rate : 081 BPM P-R Int : 176 ms QRS Dur : 082 ms QT Int : 374 ms P-R-T Axes : 068 029 081 degrees QTc Int : 434 ms Poor data quality Normal sinus rhythm Normal ECG No previous ECGs available Referred By: Antonio Rodríguez Electronically Signed By:Michael Jose
[2024-10-03 13:17] LABS: MANUAL DIFF FLAG NO
[2024-10-03 13:18] LABS: Basophils Percent Auto 0.4 % (0-2); Eosinophils Absolute Auto 0.1 X10*3/uL (0.0-0.4); Eosinophils Percent Auto 1.3 % (0-4); Hematocrit 35.5 % (37.0-47.0); Hemoglobin 10.8 g/dl (12.0-16.0); Imm Gran Abs Auto 0.03 X10*3/uL (0.00-0.03); Imm Gran Pct Auto 0.3 % (0.0-0.4); Lymphocytes Absolute Auto 2.2 X10*3/uL (1.2-4.9); Lymphocytes Percent Auto 23.9 % (20-40); Mean Corpuscular HGB Conc 30.4 g/dl (31.0-35.0); Mean Corpuscular Hemoglobin 25.2 pg (27.0-33.0); Mean Corpuscular Volume 82.9 fL (80.0-98.0); Mean Platelet Volume 8.9 fL (9.4-12.3); Monocytes Absolute Auto 0.6 X10*3/uL (0.1-1.2); Neutrophils Absolute Auto 6.1 x10*3/uL (2.0-8.3); Neutrophils Percent Auto 67.1 % (45-73); Platelet Count 358 X10*3/uL (160-400); Red Blood Count 4.28 X10*6/uL (4.20-5.50); Red Cell Distribution Width 18.5 % (11.0-16.0); White Blood Count 9.1 X10*3/uL (4.8-10.8)
[2024-10-03 13:55] LABS: Influenza A PCR NEGATIVE (Negative); Influenza B PCR NEGATIVE (Negative); Resp Syncy Virus RNA Qual PCR NEGATIVE (Negative); SARS COV2 PCR INHOUSE NEGATIVE (Negative)
[2024-10-03 13:58] LABS: Alanine Aminotransferase 14 U/L (0-31); Albumin Level 3.8 g/dL (3.5-5.0); Alkaline Phosphatase 130 U/L (39-117); Anion Gap 10 (12-20); Aspartate Amino Transferase 27 U/L (5-31); Bilirubin Direct 0.1 mg/dL (0.0-0.5); Bilirubin Total 0.3 mg/dL (0.0-1.0); Blood Urea Nitrogen 15 mg/dL (9-16); C Reactive Protein 0.65 mg/dL (< or = 0.50); Calcium 9.5 mg/dL (8.4-10.2); Carbon Dioxide 30 mmol/L (22-29); Chloride 109 mmol/L (96-108); Creatinine Clr Calc Pharmacy 54.5; Estimated Glomerular Filt Rate 42; Ethanol < 10 mg/dL; Glucose Random 141 mg/dL (60-115); Magnesium 1.9 mg/dL (1.6-2.6); Sodium 145 mmol/L (135-145); Total Protein 7.1 g/dL (6.5-8.0)
[2024-10-03 14:01] LABS: B Type Natriuretic Peptide 30 pg/mL (<100)
[2024-10-03 14:04] LABS: Troponin-I High Sensitivity 32.5 ng/L (<3.5-17.0)
[2024-10-03 15:22] LABS: Appearance Urine Cloudy; Color Urine Yellow; Glucose Urine UA Negative (Negative); Leukocyte Esterase Urine Large (3+) (Negative); Nitrite Urine Positive (Negative); Specific Gravity - Urine 1.015 (1.005-1.025); UMIC TRIGGER UACC YES; Urine Blood Moderate (2+) (Negative); Urine Ketones Negative (Negative); Urine Protein Negative (Neg-Trace)
[2024-10-03 15:34] LABS: Bacteria Urine 2+ (None Seen); RBC Urine >20 /HPF (0-2); UACC Culture Trigger YES; WBC Urine >50 /HPF (0-5)
[2024-10-03 15:46] LABS: Amphetamine Screen Urine Not Detected (Not Detect); Barbiturates, Urine Not Detected (Not Detect); Benzodiazepines Screen Urine Not Detected (Not Detect); Buprenorphine Scr Not Detected (Not Detect); Cannabinoid Screen Urine Not Detected (Not Detect); Cocaine Screen Urine Not Detected (Not Detect); Fentanyl, urine Not Detected (Not Detect); Methadone Screen, Urine Not Detected (Not Detect); Opiate Screen Urine Not Detected (Not Detect); Oxycodone Screen Urine Not Detected (Not Detect); Phencyclidine Screen Urine Not Detected (Not Detect)
[2024-10-03 16:51] LABS: Lactic Acid 0.9 mmol/L (0.5-2.0)
[2024-10-03 16:56] VITALS: BP 125/87; PULSE 90; RESP 15; TEMP 36.8; O2SAT 97
[2024-10-03] MEDS: cefTRIAXone sodium 1 GM VIAL IVPUSH (17:11)
[2024-10-03] MEDS: 0.9 % Sodium Chloride 1,000 ML 999 ML IV (17:12)
[2024-10-03 19:29] LABS: Troponin-I High Sensitivity 33.1 ng/L (<3.5-17.0)
--- NOTE | 2024-10-03 20:38 | PC.NURSE ---
Family member attempted to get pt out of bed to get her dress, pt was guided down in a sitting position when her feet gave out.
[2024-10-03 20:40] VITALS: BP 184/89; PULSE 103; RESP 16; TEMP 36.8; O2SAT 98
--- NOTE | 2024-10-03 20:40 | PC.NURSE ---
Provider at the bedside to assess pt, okay to be discharge home.
--- NOTE | 2024-10-03 21:09 | PC.NURSE ---
Reviewed discharge instructions with family member at the bedside, Report given EMS.
[2024-10-03 21:11] VITALS: BP 184/89; PULSE 103; RESP 16; TEMP 36.8; O2SAT 98
== END 2024-10-03 21:15 | disposition home or self-care (01) ==
PROVIDERS: Emergency Provider Emergency Medicine; PCP Nurse Practitioner Family
DX: N39.0 Urinary tract infection, site not specified (principal); Z91.81 History of falling; Z03.818 Encounter for observation for suspected exposure to other biological agents ruled out; E11.9 Type 2 diabetes mellitus without complications; I10 Essential (primary) hypertension; E78.5 Hyperlipidemia, unspecified; D64.9 Anemia, unspecified; Z86.73 Personal history of transient ischemic attack (TIA), and cerebral infarction without residual deficits; Z79.84 Long term (current) use of oral hypoglycemic drugs; Z79.02 Long term (current) use of antithrombotics/antiplatelets; Z79.899 Other long term (current) drug therapy
CPT/HCPCS: 0241U; 36415; 70450; 71045; 80048; 80076; 80307; 81001; 83605; 83735; 83880; 84484; 85025; 86140; 87040; 87086; 93005; 96374; 99285; J0696

== ENCOUNTER → 2024-10-03 12:55 | Outpatient (BNV) | payer MEDICARE, MEDICAID, SELFPAY | PROVIDERS: Emergency Provider Emergency Medicine; PCP Nurse Practitioner Family; Visit Provider Internal Medicine Cardiovascular Disease | DX: R53.1 Weakness (principal) | CPT/HCPCS: 93010 ==

== ENCOUNTER 2024-10-13 11:45 | Outpatient (AMB) | payer MEDICARE, MEDICAID, SELFPAY ==
[2024-10-13 11:52] VITALS: BP 120/68
--- NOTE | 2024-10-13 11:52 | HO.NEPHOV_ITS ---
Vital Signs 10/13/24 11:52 Height 5 ft 5 in BP 120/68 Blood Pressure Location Rt brachial Position Sitting Intake Visit Reasons: CKD stage 3/ HTN/2 DM w/diabetic/ Conf Commercial Stripper Required: Yes Commercial Stripper Name: El [id number] Accompanied by: Spouse Allergies No Known Allergies Allergy (Verified 10/13/24 11:54) Medication List - Last Reconciled 10/13/24 by Javier Ruelas MD atenolol 50 mg PO DAILY atorvastatin 20 mg PO BEDTIME blood sugar diagnostic (FreeStyle Lite Strips) As directed blood-glucose meter (FreeStyle Lite Meter kit) As directed cholecalciferol (vitamin D3) 25 mcg PO DAILY clopidogrel 75 mg PO DAILY dapagliflozin propanediol (Farxiga) 10 mg PO DAILY donepezil 10 mg PO BEDTIME doxazosin 2 mg PO BEDTIME 90 days glipizide 5 mg PO DAILY hydralazine 50 mg PO TID 90 days lancets (FreeStyle Lancets) As directed metformin 500 mg PO DAILY miscellaneous medical supply (Blood Pressure Cuff) As directed zinc oxide 25% 1 appl topical BID-QID PRN HPI Comments Details: Jayla is a 64-year-old woman with a history of diabetes mellitus and hypertension who had a stroke in 2021. Recent creatinine was 1.22 with a EGFR of 43 mL/minute and hence this referral. She was accompanied by her . He helped with translation. Commercial Stripper service was used. Jayla is in a wheelchair and was unable to give any history. All the information was obtained from her [facility] Medical History (Updated 10/04/24 @ 00:01 by Isis Handley) Left thigh pain Hx of gallstones Diabetes Stroke (~10/2022) High blood pressure Family History Mother HTN (hypertension) Brother Diabetes Social History Household Members: Spouse Housing: Apartment Alcohol intake: former Patient Tobacco Use Status: Former Tobacco user Cigarette Packs Per Day: 10 Years Smoked: 30 e-Cigarette/Vaping Use: Never Used Second Hand Smoke Exposure: No Advance Directives Date on File: 03/18/24 service: No Current occupational status: unemployed Cognitive needs: No Hearing needs: No Vision needs: No Review of Systems Const Details: According to her her appetite is fair she has not lost any weight. No shortness of breath no urinary symptoms. Physical Exam Vital Signs: Last Vital Signs BP 120/68 10/13/24 11:52 Currently in a wheelchair. Not verbalizing. She is awake comfortable not in distress Neck supple no JVD Heart S1-S2 heard no gallop Abdomen soft nontender extremities with trace edema. She has left-sided weakness Results Reviewed Nephrology Results: Hgb 10.8 g/dl (12.0-16.0) L 10/03/24 WBC 9.1 X10*3/uL (4.8-10.8) 10/03/24 Plt Count 358 X10*3/uL (160-400) 10/03/24 Sodium 145 mmol/L (135-145) 10/03/24 Potassium 4.0 mmol/L (3.3-5.1) 10/03/24 Chloride 109 mmol/L (96-108) H 10/03/24 Carbon Dioxide 30 mmol/L (22-29) H 10/03/24 BUN 15 mg/dL (9-16) 10/03/24 Creatinine 1.29 mg/dL (0.5-1.4) 10/03/24 Calcium 9.5 mg/dL (8.4-10.2) 10/03/24 Urine Protein Negative mg/dL (Neg-Trace) 10/03/24 Assessment & Plan Assessment & Plan (1) Diabetes mellitus with stage 3b chronic kidney disease, without long-term current use of insulin: Code(s): E11.22 - Type 2 diabetes mellitus with diabetic chronic kidney disease; N18.32 - Chronic kidney disease, stage 3b Category: Medical Qualifiers: Diabetes mellitus type: type 2 Qualified Code(s): E11.22 - Type 2 diabetes mellitus with diabetic chronic kidney disease; N18.32 - Chronic kidney disease, stage 3b (2) Anemia: Comment: mild, will wait for renal input Code(s): D64.9 - Anemia, unspecified Category: Medical Qualifiers: Anemia type: unspecified type Qualified Code(s): D64.9 - Anemia, unspecified (3) High blood pressure: Code(s): I10 - Essential (primary) hypertension Category: Medical Qualifiers: Hypertension type: secondary to endocrine disorders Qualified Code(s): I15.2 - Hypertension secondary to endocrine disorders Plan 64-year-old woman with a mild CKD with superimposed REGINE. REGINE mostly due to hypoperfusion. Obstruction should be ruled out. Other causes including glomerulonephritis and interstitial nephritis seem unlikely nevertheless we will rule that out. I have initiated workup for the same. Encouraged to increase fluid intake. Continue to avoid nephrotoxic agents including NSAIDs. Avoid hypotension. Further workup will be based on the outcome of the above baseline investigations. Orders: Orders Comprehensive Met. Panel Today E11.22 - Type 2 diabetes mellitus with diabetic chronic kidney disease, N18.32 - Chronic kidney disease, stage 3b UA and rflx microscopic Today E11.22 - Type 2 diabetes mellitus with diabetic chronic kidney disease, N18.32 - Chronic kidney disease, stage 3b Parathyroid Hormone Intact Today E11.22 - Type 2 diabetes mellitus with diabetic chronic kidney disease, N18.32 - Chronic kidney disease, stage 3b US renal BI Today E11.22 - Type 2 diabetes mellitus with diabetic chronic kidney disease, I10 - Essential (primary) hypertension, N18.32 - Chronic kidney disease, stage 3b Creatinine Urine Today E11.22 - Type 2 diabetes mellitus with diabetic chronic kidney disease, N18.32 - Chronic kidney disease, stage 3b Total Protein Urine Random Today E11.22 - Type 2 diabetes mellitus with diabetic chronic kidney disease, N18.32 - Chronic kidney disease, stage 3b Coding Level of Care Code New Pt Level 4 (06289) Diagnoses Type 2 diabetes mellitus with stage 3b chronic kidney disease, without long-term current use of insulin E11.22; N18.32 Diabetes mellitus type: type 2 Anemia, unspecified type D64.9 Anemia type: unspecified type Hypertension due to endocrine disorder I15.2 Hypertension type: secondary to endocrine disorders
== END 2024-10-13 12:12 | disposition home or self-care (01) ==
PROVIDERS: PCP Nurse Practitioner Family; Referring Provider Nurse Practitioner Family; Visit Provider Internal Medicine Hypertension Specialist
DX: E11.22 Type 2 diabetes mellitus with diabetic chronic kidney disease (principal); N18.32 Chronic kidney disease, stage 3b; D63.1 Anemia in chronic kidney disease; I15.2 Hypertension secondary to endocrine disorders
CPT/HCPCS: 99204

== ENCOUNTER 2024-10-13 11:45 | Outpatient (REF) | payer MEDICARE, MEDICAID, SELFPAY ==
[2024-10-13 13:33] LABS: Alanine Aminotransferase 14 U/L (0-31); Albumin Level 3.9 g/dL (3.5-5.0); Alkaline Phosphatase 125 U/L (39-117); Anion Gap 14 (12-20); Aspartate Amino Transferase 16 U/L (5-31); Bilirubin Total 0.3 mg/dL (0.0-1.0); Blood Urea Nitrogen 25 mg/dL (9-16); Calcium 9.9 mg/dL (8.4-10.2); Carbon Dioxide 28 mmol/L (22-29); Chloride 117 mmol/L (96-108); Estimated Glomerular Filt Rate 28; Glucose Random 201 mg/dL (60-115); Potassium 4.1 mmol/L (3.3-5.1); Sodium 155 mmol/L (135-145); Total Protein 7.4 g/dL (6.5-8.0)
[2024-10-13 13:38] LABS: Parathyroid Hormone Intact 98.2 pg/mL (8.7-77.1)
== END 2024-10-13 11:46 | disposition home or self-care (01) ==
LOC: HO.LAB 11:45
PROVIDERS: PCP Nurse Practitioner Family; Referring Provider Nurse Practitioner Family; Visit Provider Internal Medicine Hypertension Specialist
DX: E11.22 Type 2 diabetes mellitus with diabetic chronic kidney disease (principal); I15.2 Hypertension secondary to endocrine disorders; N18.32 Chronic kidney disease, stage 3b; D63.1 Anemia in chronic kidney disease; Z99.3 Dependence on wheelchair
CPT/HCPCS: 36415; 80053; 83970; 99202

== ENCOUNTER 2024-10-18 14:49 | Outpatient (REF) | payer MEDICARE, MEDICAID, SELFPAY ==
--- NOTE | ~2024-10-18 | US_ITS ---
EXAMINATION: US RETROPERITONEAL LIMITED (RENAL ONLY) CLINICAL INFORMATION: Chronic kidney disease stage III, hypertension. COMPARISON: None available. TECHNIQUE: Real-time ultrasound used to scan the bilateral kidneys and permanent documented images obtained. Study limited by scanning in wheelchair. FINDINGS: RIGHT KIDNEY: 9.5 x 6.6 x 4.5 cm (SAG x AP x TRV increased echogenicity to the renal parenchyma. Renal cortical thickness is normal. No calculi. 7.8 cm upper pole cyst. No hydronephrosis. LEFT KIDNEY: 8.6 x 4.4 x 6.0 cm (SAG x AP x TRV). Increased echogenicity to the renal parenchyma. Renal cortical thickness is normal. No calculi or focal parenchymal lesions. No hydronephrosis. US/US renal BI IMPRESSION: 1. Echogenic kidneys consistent with medical renal disease. 2. 7.8 cm right upper pole renal cyst. Electronically signed by: Charleen Barrientos MD 10/18/2024 04:41 PM EST
== END 2024-10-18 14:50 | disposition home or self-care (01) ==
LOC: HO.US 14:49
PROVIDERS: PCP Nurse Practitioner Family; Visit Provider Internal Medicine Hypertension Specialist
DX: I12.9 Hypertensive chronic kidney disease with stage 1 through stage 4 chronic kidney disease, or unspecified chronic kidney disease (principal); E11.22 Type 2 diabetes mellitus with diabetic chronic kidney disease; N18.32 Chronic kidney disease, stage 3b
CPT/HCPCS: 76775